=== PATIENT | male | born 1975 | race African-American/Black ===

== ENCOUNTER 2019-09-19 03:41 | Emergency (ER) | payer SELFPAY ==
[2019-09-19] VITALS (7 sets, daily range): BP systolic 109–146; BP diastolic 68–100; PULSE 68–103; RESP 16–18; TEMP 36.6; O2SAT 97–99
[2019-09-19 03:48] LABS: Glucose Point of Care 457 (65-105)
--- NOTE | 2019-09-19 03:56 | ED.DIZZY ---
HPI - Dizziness General Chief Complaint: Dizziness Stated Complaint: lightheaded Time Seen by Provider: 09/19/19 03:41 Source: patient Mode of arrival: EMS Limitations: no limitations History of Present Illness HPI Narrative: 43 yo male with h/o DM, HTN , noncompliant who presents for evaluation of lightheadedness. Patient states he was driving when he developed lightheadedness. He states his first episode lasted only a minute and then it resolved. He states he continued to drive and he developed lightheadedness again, so he pulled over on the side of road and called EMS. PAtient reports associated nausea, but he denies chest pain, sob, abdominal, headache, focal weakness. EMS found that his blood sugar was 370. Patient states he had just drank a coke prior to these events and he has not taken his metformin or insulin in 2 days. He states he is not on medication for hypertension. He does not see a PCP on a regular basis. He states the last time he saw a physician was last February when he was admitted for his diabetes. MD elicited complaint: lightheadedness Related Data Allergies Allergy/AdvReac Type Severity Reaction Status Date / Time No Known Allergies Allergy Verified 09/19/19 04:01 Review of Systems Constitutional: Constitutional: Denies chills and Denies fever(s) Eyes: Eyes: Denies change in vision ENT: Denies dysphagia, Reports dizziness, Denies epistaxis and Denies sore throat Cardiovascular: Cardiovascular: Denies chest pain and Denies rapid heart rate Respiratory: Respiratory: Denies cough and Denies dyspnea Gastrointestinal: Gastrointestinal: Denies abdominal pain, Reports nausea and Denies vomiting Genitourinary: Genitourinary: Denies oliguria and Denies penile discharge Musculoskeletal: Musculoskeletal: Denies back pain Neurologic: Reports dizziness, Denies syncope, Denies headache(s) and Denies focal weakness PMFSH Past Medical History Medical History (Updated 09/19/19 @ 05:46 by Hallie Garza MD) Diabetes Social History Social History Gender identity (if verbalized by the patient): Male Exam Narrative: Exam Narrative: GENERAL: Well-appearing, well-nourished, and in no acute distress. HEAD: Normocephalic, atraumatic EYES: PERRLA and EOMI, conjunctiva clear without discharge EARS: TM's clear bilaterally without erythema or dullness NOSE: Nares clear, no rhinorrhea or epistaxis THROAT:Mucous membranes moist, Oropharynx normal without erythema, exudate, peritonsillar swelling or fluctuance NECK: Supple, without lymphadenopathy or mass RESPIRATORY: No respiratory distress, Airway patent, Respirations non-labored, Clear to auscultation without rales, rhonchi or wheeze HEART: Regular rate and rhythm. No murmur heard. Normal peripheral pulses. ABDOMEN: Soft, nontender, nondistended, normal active bowel sounds. No masses. No rebound or guarding, No organomegaly. EXTREMITIES: No edema, normal strength with full range of motion. SKIN: Warm, dry, normal color without rash NEURO: Alert and oriented x3. CN 2-12 grossly intact. No focal deficits. PSYCH: Normal mood and affect. Neuro: General: no meningeal signs, no focal motor deficits and CN's II-XI intact bilaterally Cranial nerves: Yes Nystagmus not present Speech: normal speech Gait exam (Neuro): Normal gait present Motor exam (neuro): 5/5 motor strength present throughout Sensory Exam: normal sensation Coordination: [id number] test normal and [id number] test normal Course Reevaluation(s) Reevaluation #1: Patient is a noncompliant diabetic. He states he feels better. I stressed the importance of him taking his medication. He is not in DKA. AGAP of 11. He is stable for discharge home. Date: 09/19/19 Time: 05:42 Vital Signs Vital signs: Vital Signs Temperature 97.9 F 09/19/19 03:45 Pulse Rate 91 09/19/19 03:45 Respiratory Rate 16 09/19/19 03:45 Blood Pressure 138/100 H 09/19/19 03:45 Pulse
--- NOTE | 2019-09-19 04:00 | ECG_ITS ---
Measurements Intervals [place] Rate: 92 P: 32 NH: 185 QRS: -22 QRSD: 81 T: -14 QT: 334 QTc: 413 Interpretive Statements SINUS RHYTHM EARLY PRECORDIAL R/S TRANSITION VOLTAGE CRITERIA FOR LVH BORDERLINE T WAVE ABNORMALITY- ANTEROLAT/INF LEADS BORDERLINE ECG Electronically Signed On 09-19-2019 7:06:18 LOG MARKER by Yefri Cox D.O.
[2019-09-19] MEDS: ONDANSETRON INJ 4 MG/2 ML VIAL IV PUSH (04:05)
[2019-09-19] MEDS: LACTATED RINGERS 1,000 ML 999 ML IV CONT ×2 (04:05→04:57)
[2019-09-19 04:15] LABS: Basophils Percent Auto 0.3 % (0.2-1.2); Eosinophils Percent Auto 0.6 % (0-4.4); Hemoglobin 14.6 g/dL (14.0-18.0); Immature Granulocyte Absolute 0.03 K/mm3 (0.00-0.031); Immature Granulocyte Percent A 0.5 % (0-0.5); Lymphocytes Absolute Auto 2.09 K/mm3 (0.9-3.2); Lymphocytes Percent Auto 31.7 % (18.3-44.2); Mean Corpuscular HGB Conc 33.2 g/dl (32-36); Mean Corpuscular Hemoglobin 28.9 pg (26-34); Mean Platelet Volume 10.8 fl (7.4-10.4); Monocytes Absolute Auto 0.6 K/mm3 (0.1-0.6); Neutrophils Absolute Auto 3.8 K/mm3 (1.3-6.7); Neutrophils Percent Auto 57.9 % (45.5-73.1); Platelet Count Result 337 k/mm3 (150-375); Red Blood Count 5.06 M/mm3 (4.6-6.20); Red Cell Distribution Width 11.8 % (11.5-14.5); White Blood Count 6.6 K/mm3 (4.5-10.0)
[2019-09-19 04:27] LABS: Alanine Aminotransferase 33 U/L (4-50); Albumin Level 4.2 g/dL (3.5-5.1); Alkaline Phosphatase 103 U/L (38-126); Aspartate Amino Transferase 26 U/L (17-59); Bilirubin,Total 1.1 mg/dL (0.2-1.3); Blood Urea Nitrogen 12 mg/dL (9-20); Calcium 8.9 mg/dL (8.4-10.2); Carbon Dioxide 24 mmol/L (22-30); Chloride 98 mmol/L (98-107); Estimated CRCL calculation 179 ml/min; Estimated Glomerular Filt Rate > 60; Glucose 499 mg/dL (75-110); Potassium 3.6 mmol/L (3.4-5.0); Sodium 133 mmol/L (137-145)
[2019-09-19 04:28] LABS: Magnesium 1.7 mg/dL (1.6-2.3)
[2019-09-19 04:30] LABS: Add Urine Microscopic? YES; Appearance Urine Clear (Clear); Bilirubin Urine Negative (Negative); Blood Urine Negative (Negative); Color Urine Straw (Yellow); Glucose Urine UA 3+ mg/dL (Negative); Ketones Urine Negative (Negative); Leukocyte Esterase Ur Negative LEU/UL (Negative); Nitrate Urine Negative (Negative); Protein Urine Negative (Negative); RBC Urine 0-2 /hpf (0-2); Specific Grav Ur 1.028 (1.001-1.035); Urobilinogen Urine Negative mg/dL (<2.0); WBC Urine 0-3 /hpf
[2019-09-19] MEDS: INSULIN HUMAN REGULAR (*BKC) 100 UNITS/ML 10 UNITS SUB-Q (04:57)
[2019-09-19] MEDS: MECLIZINE HCL 25 MG TABLET PO (04:57)
[2019-09-19 05:40] LABS: Glucose Point of Care 426 (65-105)
== END 2019-09-19 06:06 | disposition home or self-care (01) ==
PROVIDERS: Emergency Provider General Practice
DX: E11.65 Type 2 diabetes mellitus with hyperglycemia (principal); Z91.14 Patient's other noncompliance with medication regimen; I10 Essential (primary) hypertension; Z79.4 Long term (current) use of insulin; Z79.84 Long term (current) use of oral hypoglycemic drugs; R94.31 Abnormal electrocardiogram [ECG] [EKG]
CPT/HCPCS: 36415; 80053; 81001; 82948; 83735; 85025; 93005; 96361; 96374; 99284; A9270; J1815; J2405; J7120